=== PATIENT | female | born 1980 | race Caucasian/White ===

== ENCOUNTER 2017-01-15 07:29 | Day surgery (SDC) | payer MEDICAID ==
[2017-01-15] MEDS ORDERED: LIDOCAINE 1% 2 ML INJ ONE (07:47)
--- NOTE | 2017-01-15 09:00 | PDGENHP ---
History & Physical Chief Complaint: Diarrhea Relevant Physical Exam: GEN: NAD. Cardiac: RRR. Lungs: CTA B. Abd: Soft, nt, nd
--- NOTE | 2017-01-15 09:14 | PDANEPAE ---
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 heartbeat-can feel it" - Pulmonary History Hx COPD: No Hx Asthma/Reactive Airway Disease: Yes Hx Recent Upper Respiratory Infection: No Hx Oxygen in Use at Home: No Hx Sleep Apnea: No Sleep Apnea Screening Result - Last Documented: Negative Pulmonary History Comment: asthma-no symtoms since age 16 - Neurologic History Hx Cerebrovascular Accident: No Hx Seizures: No Hx Dementia: No Neurologic History Comment: Anxiety, trouble sleeping."panic attacks- situational -closed rooms!" - Endocrine History Hx Diabetes: No - Renal History Hx Renal Disorders: No - Liver History Hx Hepatic Disorders: No - Neurological & Psychiatric Hx Hx Neurological and Psychiatric Disorders: Yes Neurological / Psychiatric History Comment: chronic low back pain-bulging disc L1-L5. - Cancer History Hx Cancer: No - Congenital Disorder History Hx Congenital Disorders: No - GI History Hx Gastrointestinal Disorders: Yes Gastrointestinal History Comment: Diet:low FODMAP, no dairy, gluten free. c/o bloating, gas, indigestion, increase in food-intolerances. - Other Health History Other Health History: none - Chronic Pain History Chronic Pain: No - Surgical History Prior Surgeries: none ANE Review of Systems Review of Systems: - Exercise capacity METS (RN): 4 METS ANE Patient History - Allergies Allergies/Adverse Reactions: erythromycin base Allergy (Verified 01/01/17 14:03) Rash latex Allergy (Verified 01/01/17 14:03) Rash - Home Medications Home medications: home medication list seen and reviewed Home Medications: MIRTAZAPINE 01/01/17 [Last Taken 01/13/17] Probiotic 01/01/17 [Last Taken 01/13/17] l-Glutamine 01/01/17 [Last Taken 01/10/17] - NPO status NPO Status: no food or drink >8 hours NPO Since - Liquids (Date): 01/15/17 NPO Since - Liquids (Time): 00:00 NPO Since - Solids (Date): 01/14/17 NPO Since - Solids (Time): 08:00 - Anes Hx Anes Hx: no prior problems - Smoking Hx Smoking Status: Never smoked - Family Anes Hx Family Hx Anesthesia Complications: not aware of ANE Labs/Vital Signs - Vital Signs Blood Pressure: 130/79 Heart Rate: 80 Respiratory Rate: 16 O2 Sat (%): 97 Height: 180.34 cm Weight: 82.554 kg ANE Physical Exam - Airway Mallampati Score: Class 1 Mouth exam: normal dental/mouth exam - Pulmonary Pulmonary: no respiratory distress - Cardiovascular Cardiovascular: regular rate and rhythym - ASA Status ASA Status: II ANE Anesthesia Plan Anesthesia Plan: general endotracheal anesthesia, GA with mask (RBA discussed) Total IV Anesthesia: Yes
[2017-01-15] MEDS ORDERED: LIDOCAINE 2% 5 ML SDV ONE (09:27)
[2017-01-15] MEDS ORDERED: PROPOFOL/EMULSION 500 MG/50 ML BOTTLE IV ONE (09:27)
[2017-01-15] MEDS ORDERED: LR 500 ML IV PRN (09:54)
[2017-01-15] MEDS ORDERED: NALOXONE HCL 0.4 MG/ML INJ IVP PRN (09:54)
[2017-01-15] MEDS ORDERED: ONDANSETRON 4 MG/2 ML VIAL IVP PRN (09:54)
--- NOTE | 2017-01-15 10:10 | GIREPORT ---
[facility] Surgical Services - Endoscopy Department Patient Name: Trupti Martini Procedure Date: 01/15/2017 9:32 AM Patient Type: Outpatient Attending / ER Physician: Kwame Herron MD Procedure: Colonoscopy Indications: Chronic diarrhea Providers: Kwame Herron MD Medicines: Monitored Anesthesia Care Complications: No immediate complications. Description of Procedure: After obtaining informed consent, the scope was passed under direct vis ion. Throughout the procedure, the patient's blood pressure, pulse, and oxyg en saturations were monitored continuously. The Colonoscope with irrigatio n channel was introduced through the anus and advanced to the terminal il eum, with identification of the appendiceal orifice and IC valve. The colono scopy was performed without difficulty. The patient tolerated the procedure w ell. The quality of the bowel preparation was good. Findings: The perianal and digital rectal examinations were normal. The terminal ileum appeared normal. Normal mucosa was found in the entire colon. Biopsies for histology wer e taken with a cold forceps from the entire colon for evaluation of microscopic colitis. Verification of patient identification for the [facility] was done by the physician and nurse using the patient's name and date. Estimated blood loss was minimal. A 2 mm polyp was found in the descending colon. The polyp was sessile. The polyp was removed with a cold biopsy forceps. Resection and retrieval w ere complete. Verification of patient identification for the specimen was d one by the physician and nurse using the patient's name and date. Estimated blood loss was minimal. The retroflexed view of the distal rectum and anal verge was normal and showed no anal or rectal abnormalities. Estimated Blood Loss: Estimated blood loss: none. Post Op Diagnosis: - The examined portion of the ileum was normal. - Normal mucosa in the entire examined colon. Biopsied. - One 2 mm polyp in the descending colon, removed with a cold biopsy forceps. Resected and retrieved. - The distal rectum and anal verge are normal on retroflexion view. Recommendation: - Discharge patient to home (with escort). - Resume previous diet. - Continue present medications. - Repeat colonoscopy date to be determined after pending pathology resu lts are reviewed for surveillance based on pathology results. If the polyp is found to be adenomatous a repeat colonoscopy in 5 years is recommended. Otherwise if the polyp is benign tissue or hyperplastic, a repeat colonoscopy at the age of 51 is recommended. - Return to GI clinic as previously scheduled. - Your pathology results are available within 10 days. - Thank you for allowing me to participate in the care of your patient. Attending Participation: I personally performed the entire procedure. Kwame Herron MD Kwame Herron MD 01/15/2017 10:09:45 AM This report has been signed electronicallyDadk Herron MD Number of Addenda: 0 Note Initiated On: 01/15/2017 9:32 AM Total Procedure Duration Time 0 hours 12 minutes 50 seconds [email or web address]
--- NOTE | 2017-01-15 10:41 | POSTANESTH ---
Post Anesthetic Evaluation Cardiovascular Status: Normal, Stable Respiratory Status: Normal, Stable Level of Consciousness/Mental Status: Mildly Sleepy, Arousable Pain Control: Adequate, Prn Tx Ordered Nausea/Vomiting Control: Adequate, Prn Tx Ordered Complications Possibly Related to Anesthesia: None Noted
[2017-01-15 10:58] VITALS: PULSE 62; RESP 16; TEMP 97.6
[2017-01-15 11:09] VITALS: O2SAT 96
[2017-01-15 11:25] VITALS: BP 119/73
== END 2017-01-15 11:30 | disposition home or self-care (01) ==
LOC: FSGY 07:29
PROVIDERS: ATTEND Internal Medicine Gastroenterology
PROC: 0DBE8ZX Excision of Large Intestine, Via Natural or Artificial Opening Endoscopic, Diagnostic (ICD-10-PCS; principal; 2017-01-15 09:15)
PROC: 0DBM8ZX Excision of Descending Colon, Via Natural or Artificial Opening Endoscopic, Diagnostic (ICD-10-PCS; principal; 2017-01-15 09:15)
DX: R19.7 Diarrhea, unspecified (principal); D12.4 Benign neoplasm of descending colon
CPT/HCPCS: J2704

== ENCOUNTER → 2017-04-01 | Outpatient (CLI) | payer MEDICAID | LOC: FIMAGING 13:11 | PROVIDERS: ATTEND Advanced Practice Midwife | DX: O09.521 Supervision of elderly multigravida, first trimester (principal); Z3A.12 12 weeks gestation of pregnancy ==